=== PATIENT | female | born 1955 | race Caucasian/White ===

== ENCOUNTER → 2018-10-19 14:56 | Outpatient (CLI) | payer BC | END | disposition home or self-care (01) | LOC: D.RAD 14:56 | PROVIDERS: ATTEND Family Medicine | DX: I10 Essential (primary) hypertension (principal) ==

== ENCOUNTER → 2018-10-20 08:05 | Outpatient (CLI) | payer BC ==
[2018-10-20 08:52] LABS: ALBUMIN 3.7 g/dL (3.4-5.0); ALKALINE PHOSPHATASE 96 U/L (46-116); ALT (SGPT) 58 U/L (10-68); BILIRUBIN - TOTAL 0.72 mg/dL (0.2-1.3); CALC OSMOLALITY 287 mosm/kg (275-300); CALCIUM 8.8 mg/dL (8.5-10.1); CARBON DIOXIDE 28.9 mmol/L (21.0-32.0); CHLORIDE - SERUM 103 mmol/L (98-107); CHOL - HDL RATIO 5.5 ratio (2.3-4.1); CHOLESTEROL, TOTAL 275 mg/dL (0-200); CREATININE - SERUM 0.6 mg/dL (0.6-1.3); GLUCOSE 198 mg/dL (74-106); HDL CHOLESTEROL 50 mg/dL (32-96); LDL CHOLESTEROL 180 mg/dL (0-100); LDL-HDL RATIO 3.6 ratio (1.5-3.5); POTASSIUM - SERUM 3.9 mmol/L (3.5-5.1); PROTEIN - SERUM 6.7 g/dL (6.4-8.2); SODIUM 141 mmol/L (136-145); THYROID STIMULATING HORMONE 0.95 uIU/mL (0.36-3.74); TRIGLYCERIDE 226 mg/dL (30-200); UREA NITROGEN 14 mg/dL (7-18); eGFR NON AFRICAN AMERICAN > 90 mL/min (90-120)
[2018-10-20 09:16] LABS: APPEARANCE HAZY (CLEAR); BACTERIA MODERATE /hpf (NONE SEEN); BILIRUBIN NEGATIVE (NEGATIVE); COLOR YELLOW (YELLOW); EPITHELIAL CELLS 0-5 /hpf (0-5); GLUCOSE 250 mg/dL (NEGATIVE); KETONE NEGATIVE (NEGATIVE); MUCUS >1+ /lpf (NONE SEEN); NITRITE NEGATIVE (NEGATIVE); PROTEIN NEGATIVE (NEGATIVE); SPECIFIC GRAVITY 1.015 (1.005-1.020); UROBILINOGEN NORMAL (NORMAL); WHITE CELLS - URINE OCC /hpf (0-5)
== END | disposition home or self-care (01) ==
LOC: D.LAB 08:05
DX: I10 Essential (primary) hypertension (principal)

== ENCOUNTER 2018-11-09 08:00 | Outpatient (CLI) | payer BC | END 2018-11-09 23:59 | disposition home or self-care (01) | LOC: D.MAMMO 08:00 | PROVIDERS: ATTEND Family Medicine | DX: Z12.31 Encounter for screening mammogram for malignant neoplasm of breast (principal) ==

== ENCOUNTER → 2018-12-01 14:01 | Outpatient (CLI) | payer BC | END | disposition home or self-care (01) | LOC: D.RAD 14:01 | PROVIDERS: ATTEND Family Medicine | DX: M25.561 Pain in right knee (principal) ==

== ENCOUNTER → 2019-01-25 07:44 | Outpatient (CLI) | payer BC | END | disposition home or self-care (01) | LOC: D.US 07:44 | PROVIDERS: ATTEND Family Medicine | DX: Z82.49 Family history of ischemic heart disease and other diseases of the circulatory system (principal) ==

== ENCOUNTER → 2019-06-20 07:32 | Outpatient (CLI) | payer BC | END | disposition home or self-care (01) | LOC: D.RT 07:32 → D.ECHO 09:35 → D.RT 06-24 13:00 | PROVIDERS: ATTEND Internal Medicine Pulmonary Disease | DX: R06.09 Other forms of dyspnea (principal) ==

== ENCOUNTER 2019-09-27 08:00 | Outpatient (CLI) | payer BC | END 2019-09-27 08:01 | disposition home or self-care (01) | LOC: D.MRI 08:00 | PROVIDERS: ATTEND Family Medicine | DX: M54.14 Radiculopathy, thoracic region (principal) ==

== ENCOUNTER → 2019-12-30 12:12 | Outpatient (CLI) | payer BC ==
[2019-12-30 13:15] LABS: ALBUMIN 3.9 g/dL (3.4-5.0); ALKALINE PHOSPHATASE 94 U/L (30-120); ALT (SGPT) 48 U/L (10-68); CALC OSMOLALITY 283 mosm/kg (275-300); CALCIUM 8.9 mg/dL (8.5-10.1); CARBON DIOXIDE 27.2 mmol/L (21.0-32.0); CHLORIDE - SERUM 103 mmol/L (98-107); CHOL - HDL RATIO 2.4 ratio (2.3-4.1); CHOLESTEROL, TOTAL 127 mg/dL (0-200); CREATININE - SERUM 0.7 mg/dL (0.6-1.3); GLUCOSE 160 mg/dL (74-106); HDL CHOLESTEROL 54 mg/dL (32-96); LDL CHOLESTEROL 49 mg/dL (0-100); LDL-HDL RATIO 0.9 ratio (1.5-3.5); POTASSIUM - SERUM 3.7 mmol/L (3.5-5.1); PROTEIN - SERUM 6.9 g/dL (6.4-8.2); SODIUM 139 mmol/L (136-145); TRIGLYCERIDE 120 mg/dL (30-200); UREA NITROGEN 21 mg/dL (7-18); eGFR NON AFRICAN AMERICAN 90 mL/min (90-120)
[2019-12-30 13:29] LABS: BASOPHILS 0.5 % (0-2); EOSINOPHILS 6.2 % (0-7); HEMATOCRIT 40.9 % (36.0-48.0); HEMOGLOBIN 13.8 g/dL (12-16); LYMPHOCYTES 38.1 % (15-50); MCH 33.5 pg (26.0-34.0); MCHC 33.7 g/dL (31.0-37.0); MCV 99.3 fL (80.0-100.0); MEAN PLATELET VOLUME 9.3 fL (7.4-10.4); MONOCYTES 5.9 % (2-11); NEUTROPHILS 49.3 % (40-80); RBC 4.12 10x6/uL (4.00-5.40); RDW 12.4 % (11.5-14.5); WBC 7.4 10x3/uL (4.8-10.8)
[2019-12-30 13:37] LABS: PLATELET COUNT 245 10x3/uL (130-400)
[2019-12-30 13:52] LABS: BILIRUBIN NEGATIVE (NEGATIVE); KETONE SMALL mg/dL (NEGATIVE); NITRITE NEGATIVE (NEGATIVE); UROBILINOGEN NORMAL mg/dL (< 2)
[2019-12-30 13:55] LABS: AMORPHOUS SEDIMENT <1+ LPF (NONE SEEN); BACTERIA MANY HPF (NONE SEEN); EPITHELIAL CELLS 0-5 /hpf (0-5); WHITE CELLS - URINE 0-5 HPF (0-4)
[2019-12-30 15:39] LABS: ERYTHROCYTE SEDIMENTATION RATE 13 mm/hr (0-30)
== END | disposition home or self-care (01) ==
LOC: D.LAB 12:12
PROVIDERS: ATTEND Family Medicine
DX: I10 Essential (primary) hypertension (principal); E11.9 Type 2 diabetes mellitus without complications